=== PATIENT | female | born 1980 | race Caucasian/White ===

== ENCOUNTER 2020-08-01 17:50 | Emergency (ER) | payer OTHER ==
[~2020-08-01 17:50] MED LIST: ZITHROMAX TRI-500 MG PO; ZOFRAN 4 MG TAB4 MG PO
[2020-08-01 18:41] LABS: HEMOGLOBIN 11.9 gm/dl (12.3-15.3); RED BLOOD COUNT 4.59 M/UL (4.00-5.10); WHITE BLOOD COUNT 11.2 K/UL (4.5-11.0)
[2020-08-01 18:55] LABS: BUN/CREATININE RATIO 11 (0-10)
[2020-08-01] MEDS ORDERED: LODINE CAP 300300 MG PO (20:43)
[2020-08-01] MEDS ORDERED: CHEST CONGESTI400 MG PO (20:43)
[2020-08-01] MEDS ORDERED: BENTYL 20MG TAB20 MG PO (20:43)
== END 2020-08-01 20:53 | disposition home or self-care (01) ==
LOC: ER1 17:50
PROVIDERS: Physician Assistant
DX: J06.9 Acute upper respiratory infection, unspecified (principal); J34.89 Other specified disorders of nose and nasal sinuses; R10.12 Left upper quadrant pain; R10.32 Left lower quadrant pain; Z87.19 Personal history of other diseases of the digestive system; Z20.822 Contact with and (suspected) exposure to COVID-19
CPT/HCPCS: 0240U; 71045; 80053; 81001; 83690; 84703; 85025; 87081; 87086; 87880; 96374; 96375; 99284; J1885; J2405